=== PATIENT | female | born 1980 | race Caucasian/White ===

== ENCOUNTER 2017-08-12 09:41 | Emergency (ER) | END 2017-08-12 10:41 | disposition home or self-care (01) ==

== ENCOUNTER 2017-08-19 10:21 | Emergency (ER) | END 2017-08-19 12:27 | disposition home or self-care (01) ==

== ENCOUNTER 2018-10-30 10:54 | Emergency (ER) | payer MEDICAID ==
[~2018-10-30] VITALS: Ht 152.4 cm; Wt 68.0 kg
[~2018-10-30 10:54] MED LIST: ACET500C5 PO; AZIT250T PO; BENZ-6 PO; FLUT9.9S NASAL; NAPR-985 PO; ONDA8TAB14 PO; PREN1TAB49; PSEU30TA38 PO
[2018-10-30 11:00] VITALS: BP 121/58; PULSE 64; RESP 18; Ht 152.4 cm; Wt 68.0 kg
--- NOTE | 2018-10-30 11:20 | ERD ---
ER Documentation Chief Complaint Chief Complaint pt is bib self with c/o cough, headache, sore throat congestion x 4 days HPI Patient is a 38 years old female with past medical history of asthma and diabetes presenting to the clinic for cough with green sputum production, headaches, sinus pressure, sore throat, coryza, and chest congestion X 4 days. Patient denies taking any pulo-rwj-qpmhcsa medication denies fever, chills, chest pain, abdominal pain. ROS All systems reviewed and are negative except as per history of present illness. Medications Home Meds Active Scripts Ibuprofen* (Motrin*) 800 Mg Tab, 800 MG PO Q6H PRN for PAIN AND OR ELEVATED TEMP, #30 TAB Prov:EDU TANNER PA-C 10/30/18 Vkadtveutcz-I-Xxqnfslonj Hb* (Guaifenesin* DM Syrup) 120 Ml Syrup, 10 ML PO Q4H PRN for COUGH for 7 Days, ML Prov:EDU TANNER PA-C 10/30/18 Methylprednisolone* (Medrol* DOSE PACK) 4 Mg/Dose-Pack Tab.ds.pk, 4 MG PO . DIRECTED for 5 Days, PACKET Prov:EDU TANNER PA-C 10/30/18 Ondansetron (Ondansetron Odt) 8 Mg Tab.rapdis, 8 MG PO Q6H PRN for NAUSEA AND/OR VOMITING, #10 TAB Prov:ANICETO CALIX MD 08/19/17 Acetaminophen* (Tylophen*) 500 Mg Capsule, 1 CAP PO Q6H PRN for PAIN AND OR ELEVATED TEMP, #20 CAP Prov:ANICETO CALIX MD 08/19/17 Acetaminophen* (Tylophen*) 500 Mg Capsule, 1 CAP PO Q6H PRN for PAIN AND OR ELEVATED TEMP, #20 CAP Prov:NANDA ARRIETA PA-C 08/12/17 Azithromycin* (Zithromax*) 250 Mg Tablet, 250 MG PO .ZPACK DIRECTED, #6 TAB TAKE 500 MG (2 TABS) THE FIRST DAY THEN 250 MG (1 TAB) DAYS 2-5 Prov:NANDA ARRIETA PA-C 08/12/17 Benzonatate* (Tessalon Perle*) 100 Mg Capsule, 100 MG PO Q8H PRN for COUGH, #20 CAP Prov:NANDA ARRIETA PA-C 08/12/17 Naproxen* (Naprosyn*) 500 Mg Tablet, 500 MG PO BID PRN for PAIN AND/OR INFLAMMATION, #30 TAB Prov:BENSON PAK PA-C 10/29/15 Fluticasone Propionate (Flonase Allergy Relief) 9.9 Ml [place].susp, 1 SPRAY NASAL DAILY, #1 BOTTLE TO EACH NOSTRIL Prov:BENSON PAK PA-C 10/29/15 Pseudoephedrine Hcl* (Pseudoephedrine Hcl*) 30 Mg Tablet, 30 MG PO Q6 PRN for CONGESTION, #30 TAB Prov:BENSON PAK PA-C 10/29/15 Reported Medications Vits W-Ca,Fe,Fa(<1MG) () 1 Tab Tablet 02/25/10 Allergies Allergies: Coded Allergies: No Known Allergies (Verified Allergy, Mild, 08/19/17) PMhx/Soc History of Surgery: Yes () Anesthesia Reaction: No Hx Neurological Disorder: No Hx Respiratory Disorders: No Hx Cardiac Disorders: Yes (HTN) Hx Psychiatric Problems: No Hx Miscellaneous Medical Probl: Yes (DM) Hx Alcohol Use: No Hx Substance Use: No Hx Tobacco Use: No FmHx Family History: No diabetes, No coronary disease, No other Physical Exam Vitals Vital Signs Date Temp Pulse Resp B/P (MAP) Pulse Ox O2 O2 Flow FiO2 Time Delivery Rate 10/30/18 98.3 64 18 121/58 98 11:00 (79) Physical Exam Const: No acute distress Head: Atraumatic. Frontal, ethmoidal, maxillary sinus tenderness. Eyes: Normal Conjunctiva ENT: Normal External Ears, Nose and Mouth. Tympanic membrane normal b ilaterally. Mild oropharyngeal erythema without exudate, edema, lesions. Neck: Full range of motion. No meningismus. Resp: Clear to auscultation bilaterally. No rales, rhonchi, wheezing. Cardio: Regular rate and rhythm, no murmurs Neur: Awake and alert Psych: Normal Mood and Affect Results 24 hrs Laboratory Tests Test 10/30/18 11:27 POC Beta HCG, Qualitative NEGATIVE Current Medications Medications Dose Sig/Meir Start Time Status Last (Trade) Ordered Route PRN Stop Time Admin Dose Reason Admin 125 mg ONCE ONCE 10/30/18 DC 10/30/18 Methylprednis IM 11:30 11:26 olone Sodium 10/30/18 11:31 Succinate (Solu-Medrol) Ibuprofen 800 mg ONCE ONCE 10/30/18 DC 10/30/18 (Motrin) PO 11:30 11:26 10/30/18 11:31 Procedures/MDM Patient was seen and evaluated for cold-like symptoms. Patient is most likely experiencing viral URI with sinusitis without complications. Patient was giving Solu-Medrol 125 IM and ibuprofen 800 mg in ED with significant improvement of symptoms. Patient stable ready for discharge. Follow-up with PCP. Patient will be discharged with Medrol Dosepak, ibuprofen, guaifenesin. Departure Diagnosis: Primary Impression: Upper respiratory infection URI type: unspecified viral URI Qualified Codes: J06.9 - Acute upper respiratory infection, unspecified Additional Impression: Sinusitis Sinusitis location: unspecified location Chronicity: acute Recurrence: non-recurrent Qualified Codes: J01.90 - Acute sinusitis, unspecified Condition: Stable Patient Instructions: Preventing Common Respiratory Infections Referrals: [facility] Additional Instructions: Paciente aconseja volver a Departamento de urgencias inmediatamente para sntomas nuevos o que empeoran . Paciente aconseja posteriores con el PCP en 2-3 odell . Paciente verbaliza la comprehensin y est de acuerdo con el tratamiento y el curso de accin. Si el paciente no tiene ninguna de atencin primaria pueden seguir con [facility] [address] [place] [address] o [facility] + [address] [address] EDU TANNER PA-C Oct 30, 2018 11:20
[2018-10-30] MEDS ORDERED: IBUP800T48 PO (11:22)
[2018-10-30] MEDS ORDERED: GUAI120S25 PO (11:22)
[2018-10-30] MEDS ORDERED: MED4DP PO (11:22)
[2018-10-30] MEDS ORDERED: IBUPROFEN 800 MG TAB PO ONE (11:30)
[2018-10-30] MEDS ORDERED: METHYLPREDNISOLONE 125 MG INJ IM ONE (11:30)
== END 2018-10-30 12:10 | disposition home or self-care (01) ==
LOC: FTE 10:54
DX: J06.9 Acute upper respiratory infection, unspecified (principal); J01.90 Acute sinusitis, unspecified; I10 Essential (primary) hypertension; E11.9 Type 2 diabetes mellitus without complications; J45.909 Unspecified asthma, uncomplicated
CPT/HCPCS: 81025; 96372; J2930; Z7502; Z7610